=== PATIENT | female | born 1950 | race Caucasian/White ===

== ENCOUNTER 2017-01-31 16:14 | Inpatient (IN) | payer BC ==
[~2017-01-31] VITALS: Ht 154.9 cm; Wt 54.2 kg
--- NOTE | ~2017-01-31 | HP ---
ADMIT: 01/31/2017 RM/LOC: 432 [facility] MR#: [id number] [address] [address] RYANN ABARCA [address] [place] [address] History and Physical SEX: F AGE: 66 : 1950 DATE OF SERVICE: 01/31/2017 CHIEF COMPLAINT: Port-A-Cath infection. HISTORY OF PRESENT ILLNESS: Ryann is a 66-year-old white female, who presented to my outpatient clinic initially on 01/29/2017 with approximately five nights of low-grade temps to 100.1 to 100.2, presyncopal dizziness, weakness, nausea and shaking rigors as well as body aches and some vague tenderness at her port site. She denied any cough, sore throat, abdominal pain, vomiting, diarrhea or rash at that time. She was found to have lost close to 124 pounds since the onset of her short-bowel syndrome back in approximately April of 2015. She noted that she continued to be followed closely by Dr. Vega at [facility] in [place]. They had recently just added dextrose to her ongoing IV hydration solution, but they were concerned about her ongoing weight loss and were considering initiation of total parental nutrition. On her exam from the , she had a blood pressure in the 100s over 60s, was cachectic and pale appearing, ill appearing, and had shaking rigors and was huddled under a blanket. Her EKG was sinus rhythm and labs drawn were actually pretty consistent with those drawn by [facility] through which she gets her IV solution on 01/22/2017. Sedimentation rate was markedly elevated. I filiberto a set of blood cultures and recommended that she be admitted to the hospital with a presumptive diagnosis of early sepsis and a port line infection. Unfortunately, Ryann declined my recommendations and opted to go home. I advised her at that time that this could represent a very serious and in fact life-threatening illness and that she needed to be admitted. She continued to decline after having a lengthy discussion both with her and her , Jose L. They did go home with the understanding that should she have any deterioration whatsoever in her condition, she go straight to the [facility] Emergency Department. She re-presented to my office today for a regularly scheduled visit to fill out [place] paperwork. She reports that the rigors are better and that she has actually gained a little bit of weight in the last couple of days. Unfortunately, one of her 2 blood cultures from the is growing out yeast. I had a conversation with Dr. Bull with Infectious Disease about this over phone. She also recommended inpatient admission for IV antibiotics and removal of her Port-A-Cath. As Ryann had heard the same recommendation from her provider Dr. Vega's nurse in [place], she is now amenable to admission. PAST MEDICAL HISTORY: Remarkable for: 1. 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 This was complicated by a Staph epidermidis PICC line infection. She also has chronic asymptomatic biliary dyskinesia and cholelithiasis. 2. History of right upper extremity catheter-associated DVT, having completed three months of Xarelto on 07/15/2015. 3. Diabetes mellitus type 2. ADMIT: 01/31/2017 RM/LOC: 432 [facility] MR#: [id number] [address] [place] [id number] RYANN ABARCA [address] [place] [address] History and Physical SEX: F AGE: 66 : 1950 4. Chronic abdominal wound, which is now healed, but required wound VAC. 5. Anemia of chronic disease. 6. History of MSSA sepsis of the left knee. 7. History of MSSA diskitis of the thoracic spine at T7 through T9 and T11 through T12. 8. Hyperlipidemia. 9. Fibromyalgia. 10.History of trimalleolar fracture with open reduction and internal fixation of her ankle. 11.Allergic rhinitis. 12.Urinary incontinence. 13.Ischemic bowel disease. 14.Perforated diverticulitis. 15.Chronic hypomagnesemia. PAST SURGICAL HISTORY: Please list: 1. T2 laminectomy and hemilaminectomy at T3. 2. Shoulder surgery in April 24, 2004. 3. Thoracic T7 through T9 laminectomy with debridement of granular abscess in September 2013. 4. Left total knee replacement. 5. Right total knee replacement. 6. Resection of left knee hardware with replacement of temporary articulating spacer with antibiotic beads in September 2013. 7. Open reduction and internal fixation of right ankle trimalleolar fracture in April of 2013. 8. Lumbar epidural steroid injection in July of 2014. 9. Cataract removal in April of 2010. 10.Diagnostic laparoscopy with conversion to open exploratory laparotomy with subtotal colectomy and small-bowel resection including all of the ilium, most of the jejunum and all of the colon with creation of an end jejunostomy on April 12, 2015. All this secondary to ischemic bowel and perforated diverticulitis. 11.Tunneled PICC line placement on July 13, 2015. 12.Cataract removal with insertion of prosthetic lens in April of 2010 on the left side and on the right side in June of 2010. 13.Irrigation and debridement of a nonhealing abdominal wound from June 2015. ALLERGIES: 1. PENICILLIN. 2. CHLORHEXIDINE, WHICH CAUSES A RASH AND DERMATITIS. 3. HYDROCODONE CAUSES VOMITING. 4. FLAGYL CAUSES NAUSEA. 5. MORPHINE CAUSES NAUSEA. 6. CODEINE CAUSES NAUSEA. 7. LEVAQUIN CAUSES NAUSEA. ADMIT: 01/31/2017 RM/LOC: 432 [facility] MR#: [id number] [address] [address] RYANN ABARCA [address] [place] [address] History and Physical SEX: F AGE: 66 : 1950 MEDICATIONS: Her outpatient medications include: 1. Os-Jose plus D 500/200 one tab twice daily. 2. Magnesium oxide 250 mg daily. 3. Zofran ODT 8 mg every 4-6 hours as needed for nausea. 4. Tylenol 325 mg as needed. 5. Keflex 500 mg twice daily per Dr. Lara's recommendations. 6. Vitamin D3 at 2000 units daily. 7. Vitamin B12 at 1000 mcg injection monthly. SOCIAL HISTORY: She is . Her very typically accompanies her to her visits. She is not working. She is nonsmoker. Denies any alcohol or recreational drug use. Health maintenance; she has essentially refused all mammograms, Pap smears, and colonoscopies. Most recent bone density in 08/2015 showed severe osteopenia. FAMILY HISTORY: Mother with a stroke. Hypertension in her mother, father, paternal grandmother. Arthritis in her mother, father, paternal grandmother and grandfather. Alzheimer's dementia in her maternal grandmother. REVIEW OF SYSTEMS: At this time, Ryann states she does not have any shaking rigors or chills. No rash. She continues to have some mild discomfort at the port site. She denies that she is feeling presyncopal or dizzy at this time, but she was having very presyncopal symptoms back on the . Remainder of her review of systems at this time is unremarkable. PHYSICAL EXAMINATION: VITAL SIGNS: Her blood pressure is 100/62, weight is 124.8 pounds, height is 60.5 inches, pulse 72, respirations 16, and temp is 97.6. GENERAL: She is awake, alert, no acute distress. Seated comfortably in the exam room. She has a walker next to her. She is pale, cachectic, and chronically ill-appearing. HEENT: Normocephalic, atraumatic. NECK: Supple. No lymphadenopathy. No thyromegaly. HEART: Regular rate and rhythm. No murmurs, gallops, or rubs. LUNGS: Clear to auscultation bilaterally. ABDOMEN: Soft, nontender, nondistended. She has a high output jejunostomy noted in the left upper quadrant. EXTREMITIES: No cyanosis, clubbing, or edema. LABORATORY AND X-RAY DATA: To be performed at the hospital will include CBC with diff, CMP, lactic acid, procalcitonin. She had a CBC, the following labs are from 01/29 and include: White count of 2.7, hemoglobin of 11.2, hematocrit 35.7, and a platelet count of 200. Amylase was 55. Lipase 138. CMP showed a glucose of 100, BUN of 16, creatinine 1.2. Sodium 142, potassium 4.8, chloride 103, bicarb 27, alkaline phosphatase of 248. Bilirubin of 3. Sedimentation rate was 59. UA with micro was unremarkable. Again, blood culture showed one of two positive sets ADMIT: 01/31/2017 RM/LOC: 432 [facility] MR#: [id number] [address] [address] RYANN ABARCA [address] [place] [address] History and Physical SEX: F AGE: 66 : 1950 for yeast. EKG showed sinus rhythm without any hyperacute ST or T wave changes. Chest x-ray was unremarkable. ASSESSMENT: 1. Port line infection with presumptive yeast. 2. Short bowel syndrome with significant weight loss since onset, chronically followed by [facility] with Dr. Vega. 3. 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 4. History of septic arthritis of the knee with methicillin-sensitive Staphylococcus aureus. 5. Diabetes mellitus type 2. 6. Osteopenia. 7. Fibromyalgia. 8. Lumbar disc disease. 9. Hyperlipidemia. 10.Chronic hypomagnesemia. 11.History of ischemic bowel disease. 12.Chronic noncompliance with treatment and recommendations. PLAN: To this point, we have been very fortunate to keep Ryann out of the hospital. She has actually done very well over a year now. Unfortunately, it does appear that she does have a port infection, again the presumptive organism is yeast at this point. I have repeated a set of blood cultures and she is amenable to admission at this time. I will be admitting her to the telemetry floor and we will start her on IV micafungin. I have asked Dr. Bull with Infectious Disease to consult as well as General surgery to have her port removed. She is chronically on an IV solution through [facility]. We will ensure that she is maintained on this as she has done very well with it. We are also going to ensure that she has her oral hydration solution that she uses at home. Her , Jose L, has multiple packets of the electrolytes that are used for this, and he simply mixes this in with tap water. We will ask that if he can bring those packets here and prep that solution so that she can use it while she is here for her diet. As for her diet, she is on a general diet. She is able to eat as much as she likes; ADMIT: 01/31/2017 RM/LOC: 432 [facility] MR#: [id number] [address] [address] [place] [address] History and Physical SEX: F AGE: 66 : 1950 however, clearly with 144 pounds of weight loss in the last year, she is certainly malabsorptive. She is followed by Dr. Vega at [facility] and considerations have been given to starting her on TPN. I will start her on Accu-Cheks AC and HS and supplemental Humalog scale for any sugars that are elevated. I have also advised her that while she is in the hospital, she needs to be getting up and out of bed four times a day walking and moving so as to prevent clots and pneumonias. Overall, her condition is poor. I anticipate she will continue to lose weight and at some point will end up on TPN. The concern would be that she does have chronic biliary dyskinesia and certainly the TPN therapy could make that worse. Her prognosis overall I think is poor. Further management will be dependent on her clinical course and recommendations by Dr. Bull and General Surgery. Madhu Navarro MD/ ruy JOB #: [id number] CC: Madhu Navarro, Attending Physician Madhu Navarro, Family Physician
--- NOTE | ~2017-01-31 | ECH ---
Transthoracic Echocardiography Report (TTE) Demographics Patient Name BRENDA ABARCA Date of Study 02/01/2017 Patient Number [id number] Visit Number [id number] Date of 1950 Room Number 432 Accession Number [id number] Gender Female Age 66 year(s) Referring Melanie Perez MD Law Office Manager Myranda Cordero Physician Jorgito Delarosa RDCS, MD Physician Interpreting Grace Giron MD Manager Community Development Physician Supervising Ordering Physician Jorgito Delarosa MD, MD/MLP Nurse Stress Medical Records Custodian Conclusions Summary Technically adequate exam. The estimated left ventricular ejection fraction is 60%. Diastolic assessment reveals Grade I diastolic dysfunction. No significant valvular abnormalities. No evidence of endocarditis noted. Procedure Type of Study TTE procedure:Echo Complete SF. Procedure Date Date: 02/01/2017 Start: 03:30 PM Technical Quality: Adequate visualization Additional Indications:Fungemia Appropriate Use Criteria: 9 Height: 61 inches Weight: 120 pounds BSA: 1.52 m Rhythm: Irregular HR: 90 bpm BP: 132/64 mmHg M-Mode/2D Measurements LV Diastolic Dimension: 4.4 cm LV Systolic Dimension: 2.94 cm LV Septum Diastolic: 0.72 cm LV PW Diastolic: 0.72 cm AO Root Dimension: 2.76 cm Cardiac Output: 3.67 l/min LA Dimension: 3.47 cm Cardiac Index: 2.41 l/min*m RV Diastolic Dimension: 2.91 cm LA volume index: 29 ml/m LVOT: 1.81 cm LVOT VTI: 15.87 cm RV Base: 3.6 cm LV Stroke volume: 40.81 ml RV Mid: 2.8 cm LV Stroke volume index: 26.85 ml/m TAPSE: 2.3 cm TDI-S': 11 cm/s Doppler Measurements AV Peak Velocity: 1.3 m/s MV Peak E-Wave: 0.62 m/s AV Peak Gradient: 6.76 mmHg MV Peak A-Wave: 0.84 m/s AV Mean Gradient: 2.88 mmHg MV E/A Ratio: 0.74 LVOT Peak Velocity: 0.9 m/s MV P1/2t: 83.7 msec AV Area (Continuity):1.86 cm MV Deceleration Time: 319.1 msec TR Velocity:2.22 m/s MV Area (PHT): 2.63 cm TR Gradient:19.71 mmHg PV Peak Velocity: 0.71 m/s Estimated RAP:3 mmHg PV Peak Gradient: 2.04 mmHg Estimated RVSP: 23 mmHg Estimated PASP: 22.71 mmHg E' Septal Velocity: 0.07 m/s A' Septal Velocity: 0.09 m/s E' Lateral Velocity: 0.09 m/s A' Lateral Velocity: 0.14 m/s RA Area: 13.48 cm Findings Left Ventricle Normal left ventricle size and function. Diastolic assessment reveals Grade I diastolic dysfunction. Right Ventricle Normal right ventricle structure and function. Left Atrium Normal left atrial size. Right Atrium Normal right atrial size. Mitral Valve Normal mitral valve structure and function. Trivial mitral regurgitation by color Doppler. Aortic Valve Normal aortic valve structure and function. Tricuspid Valve Normal tricuspid valve structure and function. Trivial tricuspid regurgitation by color Doppler. Normal pulmonary pressures. Pulmonic Valve Normal pulmonic valve structure and function. Pericardial Effusion No evidence of pericardial effusion. Miscellaneous Visualized portions of the aortic root and ascending aorta appear normal in size. Pleural Effusion No evidence of pleural effusion. Signature
[~2017-01-31 16:14] MED LIST: ADVIL200 MG PO; AZO BLADDER CONTROL PO; B-12 INJ1000 MCG/M IM; BENADRYL-DPS25 MG PO; CIPRO500 MG PO; COMPAZINE10 MG PO; DRAMAMINE50 M1 PO; FLAGYL500 MG PO; INTRALIPID IV; KEFLEX500 MG PO; LANTUS100 UNITS/ SQ; MAALOX DPS30 ML PO; MACROBID DPS100 MG PO; METAMUCIL PACK3.4 GM PO; MYCAMINE100 MG IV; OCEAN37.5 ML NS; PHENERGAN DPS25 MG PO; PROTONIX40 MG PO; ROXICODONE5 MG/5 ML PO; SKELAXIN800 MG PO; TPN IV; TYLENOL325 MG PO; VANCOMYCIN HCL1 GM IV; VENTOLIN HFA8 GM IH; XARELTO20 MG PO; ZOFRAN4 M1 PO; ZOFRAN8 M1 PO; [UNRECOGNIZED DRUG - NUTRITION] IV
--- NOTE | 2017-02-02 13:14 | CO ---
ADMIT: 01/31/2017 RM/LOC: 432 [facility] MR#: [id number] [address] [place], [place] [address] BRENDA ABARCA [address] [place] [address] Consultation SEX: F AGE: 66 : 1950 DATE OF CONSULTATION: 02/01/2017 ATTENDING PHYSICIAN: Madhu Navarro CONSULTING PHYSICIAN: Mercedes Bull MD REASON FOR CONSULT: Fungemia. Thank you, Dr. Navarro, for the consult and involving me in this patient's care. HISTORY OF PRESENT ILLNESS: Ms. Abarca is a 66-year-old woman, who presented to Dr. Navarro's clinic with complaint of low-grade fever associated with chills and weakness since the last one week. She also had noticed increased tenderness at her right chest port site insertion. She has history of short bowel syndrome since April of 2015 and is followed by Dr. Vega at [facility] in [place]. She has history of short bowel syndrome secondary to ischemic bowel and acute diverticulitis since March of 2015. It was complicated by asymptomatic biliary dyskinesia and cholelithiasis. She has been weaned off TPN since last year and currently uses the port for IV hydration and some dextrose. Dr. Navarro had ordered some blood cultures, which grew yeast on January 29. Right chest port was removed by surgery today. This PICC line was placed in October of 2015. PAST MEDICAL HISTORY: 1. Short bowel syndrome secondary to ischemic bowel and acute diverticulitis. 2. History of multiple PICC line infections. 3. History of Denise parapsilosis in the past. 4. History of right upper extremity catheter-associated DVT, completed 3 months of Xarelto in July 2015. 5. Type 2 diabetes mellitus. 6. Chronic abdominal wound which is now healed. 7. Anemia of chronic disease. 8. History of MSSA diskitis of thoracic spine T7 through T9 and T11 through T12. 9. History of left knee MSSA prosthetic joint infection, on chronic cephalexin, prescribed by Dr. Lara. 10.Hyperlipidemia. 11.Fibromyalgia. 12.Urinary incontinence with ischemic bowel syndrome. 13.History of trimalleolar fracture with open reduction and internal fixation of her ankle. 14.Chronic hypomagnesemia. 15.Chronic diverticulitis. PAST SURGICAL HISTORY: 1. Shoulder surgery in April 2004. 2. T2 laminectomy and hemilaminectomy at T3. 3. Left total knee replacement. ADMIT: 01/31/2017 RM/LOC: 432 [facility] MR#: [id number] [address] [address] [place] [address] Consultation SEX: F AGE: 66 : 1950 4. Right total knee replacement. 5. Explantation of left knee hardware and replacement of the spacer with antibiotic beads in September 2013. 6. Cataract surgery. 7. Subtotal colectomy and small-bowel resection with creation of end jejunostomy in April 2015. ALLERGIES: 1. PENICILLIN WHICH CAUSES HIVES. 2. HYDROCODONE. 3. CHLORHEXIDINE. 4. FLAGYL CAUSES NAUSEA AND VOMITING. 5. LEVAQUIN CAUSES NAUSEA AND VOMITING. 6. CODEINE CAUSES NAUSEA. 7. MORPHINE CAUSES NAUSEA. CURRENT MEDICATIONS: Include: 1. Insulin sliding scale. 2. Micafungin 100 mg once daily. 3. Cephalexin 500 mg twice daily. 4. Magnesium. 5. Os-Jose and vitamin D 600 mg twice daily. 6. Albuterol. 7. Multivitamin. 8. Imodium. 9. Cyanocobalamin. SOCIAL HISTORY: She is and lives at home with her . Denies any smoking, alcohol, or recreational drug use. FAMILY HISTORY: Significant for stroke in her mother. Hypertension and dementia in her father. REVIEW OF SYSTEMS: A 10-point review of systems negative except as mentioned in the HPI. PHYSICAL EXAMINATION: VITAL SIGNS: Current temperature 97.8, heart rate 84, respirations 16, blood pressure 113/53, 99% on room air. GENERAL: No acute distress. HEENT. Head normocephalic and atraumatic. Extraocular movements intact. CHEST: Clear to auscultation bilaterally. No wheezes, rales, or rhonchi. CARDIOVASCULAR: S1, S2 heard. Regular rate and rhythm. ABDOMEN: Soft and nontender. Colostomy with liquid stool present. EXTREMITIES: No peripheral edema. PSYCH: Normal affect. Memory intact. SKIN: No rash noted on exposed skin. DATA REVIEW: Per HPI. Her CBC today shows white count of 2.7, hemoglobin 9.6, ADMIT: 01/31/2017 RM/LOC: 432 [facility] MR#: [id number] [address] [address] [place] [address] Consultation SEX: F AGE: 66 : 1950 and platelets 197. CMP shows creatinine of 1.2. ASSESSMENT AND PLAN: 1. Yeast in the blood, likely secondary to PICC line infection, status post removal today. Continue micafungin 100 mg IV once daily. Repeat blood cultures are pending. She also needs an Ophthalmology evaluation at the end of her treatment. 2. Chronic leukopenia. 3. Short-gut syndrome. We will hold off on any IV central access until her blood cultures are cleared. 4. Diabetes mellitus type 2. 5. 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 Lara. Thank you for the consult and I will continue to follow the patient. Mercedes Gumaste, MD/ ruy JOB #: [id number] CC: Madhu Navarro, Attending Physician Madhu Navarro, Family Physician
[2017-02-04] MEDS ORDERED: IV FLUIDS (13:23)
[2017-02-04] MEDS ORDERED: KEFLEX-DPS500 MG PO (13:23)
[2017-02-04] MEDS ORDERED: MAGNESIUM250 M1 PO (13:25)
[2017-02-04] MEDS ORDERED: CALCIUM 500 +1 EACH PO (13:25)
[2017-02-04] MEDS ORDERED: VITAMIN D-32000 UNI1 PO (13:25)
[2017-02-04] MEDS ORDERED: IMODIUM DPS2 MG PO (13:26)
[2017-02-04] MEDS ORDERED: THERA1 EACH PO (13:26)
[2017-02-04] MEDS ORDERED: CYANOCOBAL1000 MCG/1 SQ (13:26)
[2017-02-04] MEDS ORDERED: PROVENTIL HFA6.7 GM IH (13:26)
[2017-02-04] MEDS ORDERED: MYCAMINE100 MG IV (13:27)
--- NOTE | 2017-02-19 08:40 | DS ---
ADMIT: 01/31/2017 RM/LOC: [facility] MR#: [id number] [address] [address] RYANN ABARCA [facility] [place] [address] Discharge Summary SEX: F AGE: 66 : 1950 ADMISSION DATE: 01/31/2017 DISCHARGE DATE: 02/03/2017 ADMITTING DIAGNOSES: 1. Fungemia secondary to tunneled PICC (peripherally inserted central catheter) line infection. 2. 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 3. 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 4. History of septic arthritis of the knee with methicillin-sensitive Staph aureus. 5. Diabetes mellitus type 2. 6. Osteopenia. 7. Fibromyalgia. 8. Lumbar disc disease. 9. Hyperlipidemia. 10.Chronic hypomagnesemia. 11.History of ischemic bowel disease. 12.Chronic noncompliance of treatment and recommendations. DISCHARGE DIAGNOSES: 1. Fungemia secondary to tunneled PICC (peripherally inserted central catheter) line infection. 2. 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 3. 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 4. History of septic arthritis of the knee with methicillin-sensitive Staph aureus. 5. Diabetes mellitus type 2. 6. Osteopenia. 7. Fibromyalgia. 8. Lumbar disc disease. 9. Hyperlipidemia. 10.Chronic hypomagnesemia. 11.History of ischemic bowel disease. 12.Chronic noncompliance of treatment and recommendations. CONSULTATIONS: 1. Mercedes Bull MD, Infectious Disease, consulted 01/31/2017. 2. Morgan Rees MD, General Surgery, consulted 01/31/2017. PROCEDURES: Removal of tunneled PICC line catheter performed on 02/01/[address] Rees. HISTORY AND PHYSICAL EXAM: Ryann is a 66-year-old white female, who presented to the outpatient clinic on 01/29/2017 with approximately 5 nights of low-grade temps to 100.1-100.2, presyncopal dizziness, weakness, nausea, ADMIT: 01/31/2017 RM/LOC: [facility] MR#: [id number] [id number] [address] RYANN ABARCA [address] [place] [address] Discharge Summary SEX: F AGE: 66 : 1950 shaking, rigors, and body aches. She also had some tenderness over her port site. At the time, she had lab abnormalities which were consistent with a previous lab draw from approximately a week prior. However, out of caution, blood cultures were ordered and it was recommended that she be admitted to the hospital. She declined admission and a lengthy discussion was held with her and her about what to do if her condition were to worsen. Over the ensuing 24 hours, she had blood cultures that came back positive for yeast in her blood, one of two positive, and she subsequently returned to the clinic where we held another discussion with her about admitting to the hospital for IV antifungals. She was amenable to admission at that time. HOSPITAL COURSE: Ryann was admitted to the hospital for IV micafungin. General Surgery was consulted to remove her tunneled PICC line. Dr. Rees did this on the [address] Bull with Infectious Disease was consulted and recommended IV micafungin. Ryann had a transthoracic echocardiogram, which showed no significant valvular abnormalities or no evidence of endocarditis performed on February 01, 2017. She remained afebrile throughout her hospital stay. She had 4 other sets of blood cultures ordered during her hospitalization. All 4 additional sets of blood cultures came back negative. One of two positive blood cultures from the grew out Denise parapsilosis. At the time of discharge, her cath tip culture was negative. On the morning of 02/03/2017, the decision was made to discharge her to home with further management and IV micafungin to be performed as an outpatient. A peripheral IV is to be used for this purpose over the next 2 weeks, and while not ideal, the patient understands that the risk of additional infection with peripheral IV is much lower than that of a PICC line or a more permanent line while she has the infection. DISPOSITION: She is going to be discharged to home with [facility] to follow. [facility] will continue to provide her IV fluids and IV nutrition. Adjustments will be made by Dr. Vega's clinic at [facility] short ADMIT: 01/31/2017 RM/LOC: [facility] MR#: [id number] [address] [address] [place] [address] Discharge Summary SEX: F AGE: 66 : 1950 gut syndrome clinic. She will be sent home with a peripheral IV for her IV micafungin. [facility] has indicated that they are able to make 2 IV attempts should her IV go bad, and the recommendation will be that if it is after hours and they are unable to provide another IV, she is to go to the ER. If during business hours, she will go to short-stay surgery to have her IV replaced. She will be on the IV micafungin for a total of 2 weeks, the final dose to be given on 02/14/2017. I have asked that Interventional Radiology place on order a single-lumen Broviac catheter with an ethanol lock, which will be placed on 02/15/2017 barring any major complications. I have asked that she follow up with me in [address] Bull in the next week. We will try and get her a midline placed sometime next week if her cultures from the come back negative. Madhu Navarro MD/ zechariah JOB #: [id number] CC: Madhu Navarro MD, Attending Physician Madhu Navarro MD, Family Physician
--- NOTE | 2017-03-09 10:17 | OR ---
ADMIT: 01/31/2017 RM/LOC: 432 [facility] MR#: [id number] [address] BRENDA ABARCA [address] [place] [address] Operative/Delivery Room Report SEX: F AGE: 66 : 1950 SURGERY DATE: 02/01/2017 SURGEON: Morgan Rees MD INDICATIONS FOR PROCEDURE: Fungemia. Request for tunneled PICC line catheter removal. DESCRIPTION OF PROCEDURE: After the patient was informed of the procedure, she remained in her bed supine with the head of the bed elevated at 30 degrees. Catheter site was anesthetized with approximately 4 mL of 1% lidocaine with epinephrine. She was then prepped with Betadine solution in the normal fashion. With gentle traction, the catheter was pulled and a hemostat was used to dissect the cuff away from her skin. Eventually, the cuff was freed and the catheter was removed without any complications. The tip was cut and sent off to laboratory for cultures and sensitivities. Gauze was placed over the catheter site and once good hemostasis was achieved, a Tegaderm dressing was placed. Overall, the patient tolerated the procedure well. JUDITH Almanza / Morgan Rees MD / ruy JOB #: [id number] CC: Madhu Navarro, Attending Physician Madhu Navarro, Family Physician
== END 2017-02-03 10:10 | disposition home health service (06) | DRG 314 ==
LOC: 4PCU 16:14
PROVIDERS: ADMIT Family Medicine
DX: T80.211A Bloodstream infection due to central venous catheter, initial encounter (principal); B37.7 Candidal sepsis; K91.2 Postsurgical malabsorption, not elsewhere classified; E83.42 Hypomagnesemia; E11.9 Type 2 diabetes mellitus without complications; D63.8 Anemia in other chronic diseases classified elsewhere; E78.5 Hyperlipidemia, unspecified; D72.819 Decreased white blood cell count, unspecified; J30.9 Allergic rhinitis, unspecified; K80.20 Calculus of gallbladder without cholecystitis without obstruction; K82.8 Other specified diseases of gallbladder; M79.7 Fibromyalgia; R32 Unspecified urinary incontinence; M85.80 Other specified disorders of bone density and structure, unspecified site; R63.4 Abnormal weight loss; M51.36 Other intervertebral disc degeneration, lumbar region; Z91.19 Patient's noncompliance with other medical treatment and regimen; Z86.14 Personal history of Methicillin resistant Staphylococcus aureus infection; Z86.718 Personal history of other venous thrombosis and embolism; Z96.653 Presence of artificial knee joint, bilateral

== ENCOUNTER → 2017-02-05 | Outpatient (CLI) | payer BC ==
[~2017-02-05] MED LIST changes: +CALCIUM 500 +1 EACH PO; +CYANOCOBAL1000 MCG/1 SQ; +IMODIUM DPS2 MG PO; +IV FLUIDS; +KEFLEX-DPS500 MG PO; +MAGNESIUM250 M1 PO; +PROVENTIL HFA6.7 GM IH; +THERA1 EACH PO; +VITAMIN D-32000 UNI1 PO
== END | disposition home or self-care (01) ==
LOC: CARD 12:53
DX: J18.9 Pneumonia, unspecified organism (principal)

== ENCOUNTER 2017-02-15 07:30 | Day surgery (SDC) | payer BC ==
[~2017-02-15] VITALS: Ht 154.9 cm; Wt 52.5 kg
== END 2017-02-15 11:02 | disposition home or self-care (01) ==
LOC: RAD.S 07:30 → EDSTATUS 09:00 → RAD.S 11:02
PROC: B513ZZA Fluoroscopy of Right Jugular Veins, Guidance (ICD-10-PCS; principal; 2017-02-15)
PROC: 05HM33Z Insertion of Infusion Device into Right Internal Jugular Vein, Percutaneous Approach (ICD-10-PCS; principal; 2017-02-15)
DX: K91.2 Postsurgical malabsorption, not elsewhere classified (principal); Z88.0 Allergy status to penicillin; Z88.8 Allergy status to other drugs, medicaments and biological substances; Z88.1 Allergy status to other antibiotic agents; Z91.018 Allergy to other foods